=== PATIENT | male | born 1940 | race Caucasian/White ===

== ENCOUNTER 2018-08-14 18:35 | Emergency (ER) | payer OTHER ==
[~2018-08-14] VITALS: Ht 177.8 cm; Wt 90.9 kg
[~2018-08-14 18:35] MED LIST: BENA40TA56 PO; DOXA8TAB65 PO; FINA5TAB4 PO; FURO40TA4 PO; GLYB5TAB3 PO; SIMV20TA2 PO
--- NOTE | 2018-08-14 18:44 | ERD ---
ER Documentation Chief Complaint Chief Complaint HPI This 78-year-old male who presents for evaluation of syncopal episode, patient h as a prior history of stroke, he states that he thinks that he may have gotten up too quickly, he denies any pain or injuries, he denies chest pain or shortness of breath, he denies nausea or vomiting, he states that he is a DNR/DNI, currently he has no complaints. ROS All systems reviewed and are negative except as per history of present illness. Medications Home Meds Reported Medications Finasteride* (Finasteride*) 5 Mg Tablet, 5 MG PO DAILY 04/17/11 Doxazosin Mesylate* (Doxazosin Mesylate*) 8 Mg Tablet, 8 MG PO DAILY 04/17/11 Furosemide (Lasix) 40 Mg Tab, 40 MG PO DAILY 04/17/11 Benazepril Hcl* (Benazepril Hcl*) 40 Mg Tablet, 40 MG PO DAILY 04/17/11 Glyburide* (Glyburide*) 5 Mg Tablet, 5 MG PO 04/17/11 Simvastatin (Simvastatin) 20 Mg Tablet, 20 MG PO DAILY 04/17/11 Allergies Allergies: Coded Allergies: No Known Allergy (Verified Allergy, Unknown, 02/28/07) PMhx/Soc History of Surgery: No Anesthesia Reaction: No Hx Neurological Disorder: Yes (CVA) Hx Respiratory Disorders: No Hx Cardiac Disorders: Yes (HTN, HIGH CHOLESTEROL, PVD) Hx Psychiatric Problems: No Hx Miscellaneous Medical Probl: No Hx Alcohol Use: No Hx Substance Use: No Hx Tobacco Use: Yes Physical Exam Vitals Vital Signs Date Temp Pulse Resp B/P (MAP) Pulse Ox O2 O2 Flow FiO2 Time Delivery Rate 08/14/18 89 19 131/58 99 Room Air 22:46 (82) 08/14/18 104/44 22:33 (64) 08/14/18 118/55 22:33 (76) 08/14/18 97.3 82 20 141/61 97 18:45 (87) Physical Exam Const: No acute distress Head: Atraumatic Eyes: Normal Conjunctiva ENT: Normal External Ears, Nose and Mouth. Neck: Full range of motion. No meningismus. Resp: Clear to auscultation bilaterally Cardio: Regular rate and rhythm, no murmurs Abd: Soft, non tender, non distended. Normal bowel sounds Skin: No petechiae or rashes Back: No midline or flank tenderness Ext: No cyanosis, or edema Neur: Awake and alert Psych: Normal Mood and Affect Result Diagram: 08/14/18185608/14/181856 Results 24 hrs Laboratory Tests Test 08/14/18 18:57 08/14/18 18:58 08/14/18 21:35 White Blood Count 9.0 10^3/ul Red Blood Count 4.30 10^6/ul Hemoglobin 11.9 g/dl Hematocrit 37.8 % Mean Corpuscular Volume 87.9 fl Mean Corpuscular Hemoglobin 27.7 pg Mean Corpuscular 31.5 g/dl Hemoglobin Concent Red Cell Distribution Width 14.1 % Platelet Count 172 10^3/UL Mean Platelet Volume 10.1 fl Immature Granulocytes % 1.600 % Neutrophils % 62.9 % Lymphocytes % 21.6 % Monocytes % 10.4 % Eosinophils % 2.8 % Basophils % 0.7 % Nucleated Red Blood Cells % 0.0 /100WBC Immature Granulocytes # 0.140 10^3/ul Neutrophils # 5.7 10^3/ul Lymphocytes # 2.0 10^3/ul Monocytes # 0.9 10^3/ul Eosinophils # 0.3 10^3/ul Basophils # 0.1 10^3/ul Nucleated Red Blood Cells # 0.0 10^3/ul Sodium Level 142 mmol/L Potassium Level 4.4 mmol/L Chloride Level 108 mmol/L Carbon Dioxide Level 21 mmol/L Anion Gap 13 Blood Urea Nitrogen 39 mg/dl Creatinine 1.52 mg/dl Est Glomerular Filtrat mL/min Rate mL/min Glucose Level 189 mg/dl Calcium Level 9.4 mg/dl Troponin I 0.016 ng/ml Prothrombin Time 13.4 Sec Prothrombin Time Ratio 1.0 INR International 1.01 Normalized Ratio Urine Color YELLOW Urine Clarity CLEAR Urine pH 5.0 Urine Specific [place] 1.012 Urine Ketones NEGATIVE mg/dL Urine Nitrite NEGATIVE mg/dL Urine Bilirubin NEGATIVE mg/dL Urine Urobilinogen NEGATIVE mg/dL Urine Leukocyte Esterase TRACE Ju/ul Urine Microscopic RBC 1 /HPF Urine Microscopic WBC 11 /HPF Urine Hemoglobin NEGATIVE mg/dL Urine Glucose NEGATIVE mg/dL Urine Total Protein NEGATIVE mg/dl Procedures/MDM This is a 78-year-old male with prior history of CVA, history of diabetes who presents for evaluation of syncopal episode, where the patient felt dizzy after getting up and suddenly had a syncopal episode. He had no seizure activity afterwards he felt very dizzy and lightheaded, he was given IV fluids, felt significantly better, he had some evidence of orthotic hypertension, no known arrhythmia on his EKG, additionally he has a pacemaker, his cardiac workup was unremarkable, I offered admission to the patient and daughter, they felt comfortable taking the patient home, where he could follow-up with his primary care doctor as well as [facility], at discharge patient was in no acute distress. EKG: Rate/Rhythm: Normal Sinus Rhythm QRS, ST, T-waves: No changes consistent w/ acute ischemia Impression: No evidence of ischemia or arrhythmia Departure Diagnosis: Primary Impression: Syncope Syncope type: unspecified Qualified Codes: R55 - Syncope and collapse Condition: Stable MARSHAL REID MD Aug 14, 2018 18:44
[2018-08-14 18:45] VITALS: Ht 177.8 cm; Wt 90.9 kg
[2018-08-14 22:46] VITALS: BP 131/58; PULSE 89; RESP 19
== END 2018-08-14 22:47 | disposition home or self-care (01) ==
LOC: E/R 18:35
DX: R55 Syncope and collapse (principal); I10 Essential (primary) hypertension; Z86.73 Personal history of transient ischemic attack (TIA), and cerebral infarction without residual deficits; Z87.891 Personal history of nicotine dependence
CPT/HCPCS: 70450; 71045; 80048; 81001; 84484; 85025; 85610